=== PATIENT | male | born 1950 | race African-American/Black ===

== ENCOUNTER 2016-11-11 07:50 | Emergency (ER) ==
[2016-11-11] MEDS ORDERED: XYLOCAINE-MPF 1% 5 ML ONE (09:00)
--- NOTE | 2016-11-11 09:01 | PROVIDER DOCUMENTATION ---
HPI-Rash/Wound/ReCheck - General Chief Complaint: Abscess Stated Complaint: ABSCESS/INSECT BITE/STING Time Seen by Provider: 11/11/16 07:54 Source: patient Allergies/Adverse Reactions: Allergies Allergy/AdvReac Type Severity Reaction Status Date / Time No Known Allergies Allergy Verified 11/11/16 08:17 Home Medications: Home Medication List Medication Instructions Recorded Confirmed Last Taken Type Allopurinol 100 mg PO DAILY 09/19/14 09/20/14 09/19/14 History Amlodipine Besylate 10 mg PO QHS 09/19/14 09/19/14 09/19/14 History Aspirin [Michaela Chewable] 81 mg PO DAILY 09/19/14 09/20/14 09/19/14 History Furosemide [Lasix] 20 mg PO DAILY 09/19/14 09/19/14 09/19/14 History Lisinopril/Hydrochlorothiazide 1 tab PO DAILY 09/19/14 09/19/14 09/19/14 History [Lisinopril-Hctz 20-25 mg Tab] Metformin [Glucophage] 500 mg PO DAILY 09/19/14 09/20/14 09/19/14 History Metoprolol Succinate E.r. [Toprol 50 mg PO BID 09/19/14 09/20/14 09/20/14 History Xl] [place]rawley-3S/Dha/Epa/Fish Oil/D3 [Fish 1 cap PO TID 09/19/14 09/20/14 09/19/14 History Oil + D3 Softgel] PRAVAstatin [Pravachol] 80 mg PO DAILY 09/19/14 09/19/14 09/19/14 History Potassium Chloride E.r. [Micro-K] 10 meq PO BID 09/19/14 09/20/14 09/19/14 History Prasugrel [Effient] 10 mg PO DAILY 09/19/14 09/19/14 09/19/14 History Ubidecarenone/Vit E Acetate [Co 100 mg PO DAILY 09/19/14 09/19/14 09/19/14 History Q-10 100 mg Softgel] Metformin E.r. [Glucophage Xr] 500 mg PO BID CC #60 tablet 09/20/14 Unknown Rx Sulfamethoxazole/Tmp D.s. [Septra 1 each PO BID #20 tablet 11/11/16 Unknown Rx Ds] - History of Present Illness-Dermatology Nature of Presenting Problem: Pt is 66 y/o M presents to the ED with golf ball sized abscess to L side of posterior neck. Pt states he might have got bit by an insect but he is not sure. Pt states the swelling started last night and was worse this morning. Pt denies injury or trauma. Pt states having a prior surgery where the swelling has occurred. Location: reports: other (L posterior neck) Quality: reports: none Onset/Duration: reports: last night Timing: reports: still present Context/Associated Symptoms: reports: abrasion, swelling/mass/lumps (golf ball sized mass to L posterior neck) Identifiable cause?: No Exposure: reports: unknown cause Locality of Occurance: Home Similar Symptoms Previously?: Yes Recently seen or treated by another doctor?: No Review of Systems - Adult - REVIEW OF SYSTEMS - ADULT Constitutional: denies: chills, fever Eyes: denies: blurred vision, double vision Ears, Nose, Mouth & Throat: denies: ear pain, nose pain, throat pain Cardiovascular: denies: chest pain, heart murmur, irregular heart rate Respiratory: denies: cough, shortness of breath, wheezing Gastrointestinal: denies: abdominal pain, diarrhea, nausea, vomiting Genitourinary: denies: dysuria, hematuria Musculoskeletal: denies: bone pain, joint pain, neck pain Integumentary: reports: other (golf ball sized mass to L side of posterior neck) . denies: hives, itching Neurological: denies: dizziness/vertigo, headache/migraines Psychiatric: denies: anxiety, depression Endocrine: reports: no symptoms reported Hematologic/Lymphatic: reports: no symptoms reported Allergic/Immunologic: reports: no symptoms reported All Other Systems: Reviewed and Negative Past History - Adult - PAST MEDICAL HISTORY-ADULT Review of Records: reports: Nursing Assessment Review, Medications Reviewed, Social history reviewed & non-contributory. Major Childhood Illnesses: reports: denies history Cardiovascular: reports: CHF, HTN Respiratory: reports: denies history Gastrointestinal: reports: denies history Obstetrical/Gynecological: reports: denies history Genitourinary: reports: denies history Musculoskeletal: reports: denies history Neurological: reports: denies history Endocrine/Immune: reports: Diabetes Other Conditions: reports: denies history - PRIOR SURGERIES/PROCEDURES Surgical/Procedure History: reports: cardiac stent - IMMUNIZATION STATUS Childhood Immunizations: See Nurse Assessment Flu Vaccine: See Nurse Assessment - FAMILY HISTORY Family History: reviewed, not pertinent - SOCIAL HISTORY Smoking: denies Substance Use: alcohol Alcohol Use Frequency: occasionally Number of drinks per typical drinking period:: 2 drinks Living Situation: family Physical Exam-General - PHYSICAL EXAM-ADULT Initial Vital Signs Reviewed: Yes - CONSTITUTIONAL General Appearance: appears well, alert, no apparent distress - EYES Eyes: PERRL/EOMI, pink conjunctivae, fundi clear, no AV nicking - HEAD, EARS, NOSE, MOUTH & THROAT HENMT: normocephalic/atraumatic, moist mucous membranes, normal ENT inspection, TMs normal, pharynx normal - NECK Neck: non-tender, full range of motion, other (golf ball sized mass to L side posterior neck) - RESPIRATORY Respiratory: chest non-tender, lungs clear, normal breath sounds, no pleuratic chest pain, no respiratory distress, no accessory muscle use - CARDIOVASCULAR Cardiovascular: normal peripheral pulses, regular rate, rhythm, no edema, no gallop, no JVD, no murmur - GASTROINTESTINAL (ABDOMEN) Abdominal Exam: normal bowel sounds, non tender, soft, no organomegaly - LYMPHATIC Lymphatic: no adenopathy - MUSCULOSKELETAL Back Exam: normal inspection, no CVA tenderness, no vertebral tenderness Extremity: normal range of motion, non-tender, normal gait, normal inspection, no pedal edema, no calf tenderness, normal capillary refill, pelvis stable - SKIN Integumentary: normal color, normal turgor, warm/dry - 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, grossly normal, no motor/sensory deficits - PSYCHIATRIC Psych/Mental Status: normal mood/affect, normal thought content, normal thought process, oriented x 3 Progress - PLAN OF CARE/RESULTS Progress/Plan/Lab Results: Orders Category Date Time Status Lidocaine 1% Pf [Xylocaine-Mpf 1%] 5 ml Med 11/11/16 09:00 Discontinued .ROUTE As Directed Vital Signs - 24 hr 11/11/16 08:15 Temperature 97.1 F L Pulse Rate 83 Respiratory 18 Rate Blood Pressure 117/65 O2 Sat by Pulse 100 Oximetry Departure - Departure Time of Disposition Order: 09:15 DIAGNOSIS: Scar tissue Cellulitis Qualifiers: Site of cellulitis: neck Qualified Code(s): L03.221 - Cellulitis of neck Disposition: HOME 01 Certified Medical Emergency: Emergent Condition: Stable Additional Instructions: ED Follow Up Instructions: You have been treated by a care provider in the Emergency Department. These instructions are being provided to you so you can have an understanding of how to care for yourself upon discharge. Upon discharge from the Emergency Department, you are responsible for making arrangements for follow-up care by a physician of your choice. Take all prescribed medications as directed. Return to the Emergency Department immediately for any new or worsening symptoms. You may call the Physician Referral phone number at [phone] to obtain a list of Physicians who are taking new patients. Prescriptions: Sulfamethoxazole/Tmp D.s. [Septra Ds] 1 each PO BID #20 tablet Referrals: Filemon Velasquez MD [STAFF PHYSICIAN] - None,PCP [Primary Care Provider] - Nir Santos MD [STAFF PHYSICIAN] - Forms: Return to School/Parent Work Instructions: Cellulitis, Sulfamethoxazole; Trimethoprim, SMX-TMP tablets Attestation - Scribe Verification/Attestation Scribe:: Lulu Raygoza Acting as Scribe for:: Bryce Cheney Scribe documention review:: This chart was documented by a scribe and accurately reflects the service the provider performed and the decisions made by the provider.
[2016-11-11 09:54] VITALS: BP 106/67
== END 2016-11-11 09:50 | disposition home or self-care (01) ==
LOC: P.ED 07:50
DX: L03.221 Cellulitis of neck (principal); L90.5 Scar conditions and fibrosis of skin; R22.1 Localized swelling, mass and lump, neck; I50.9 Heart failure, unspecified; I10 Essential (primary) hypertension; E11.9 Type 2 diabetes mellitus without complications; Z79.899 Other long term (current) drug therapy; Z95.5 Presence of coronary angioplasty implant and graft
CPT/HCPCS: 82948; 99282